=== PATIENT | male | born 1995 | race Caucasian/White ===

== ENCOUNTER 2020-04-29 13:34 | Emergency (ER) | payer OTHER, SELFPAY ==
[2020-04-29] VITALS (30 sets, daily range): BP systolic 118–156; BP diastolic 64–99; PULSE 68–104; RESP 16–17; TEMP 36.9; O2SAT 94–100
--- NOTE | ~2020-04-29 | CT_ITS ---
EXAMINATION: CT brain wo con EXAM DATE: 04/29/2020 15:38 INDICATION: Unable to move jaw since Tuesday, paresis. TECHNIQUE: Spiral CT of the head was performed without contrast. Axial, coronal and sagittal images were reviewed. The dose-length product (DLP) for this examination was 681.00 mGy-cm. The exposure w as tailored according to patient size, and iterative reconstruction (ASIR) was used as additional dos e reduction technique. There is no prior study for comparison. FINDINGS: There is no acute intraparenchymal hemorrhage. No evidence of intraparenchymal brain mass lesion. No evidence of acute infarction. There is no mass effect or midline shift. The ventricles are normal in size. There are no extra-axial collections. There are no acute calvarial fractures. T he orbits are unremarkable. Soft tissue is unremarkable. The visualized sinuses and mastoid air margarita ls are well aerated. IMPRESSION: 1. Unremarkable head CT examination. Reviewed, dictated and finalized at location A. NT SERVICES VICE PRESIDENT
[2020-04-29] MEDS: diphenhydrAMINE HCl INJ 50 MG/ML VIAL 25 MG IV PUSH (14:00)
--- NOTE | 2020-04-29 14:00 | ED.GENADULT ---
HPI - General Adult General Chief complaint: Unspecified <Felix Ott PA-C - Last Filed: 04/29/20 17:28> Stated complaint: allergic rx <Felix Ott PA-C - Last Filed: 04/29/20 17:28> Time Seen by Provider: 04/29/20 13:39 <Felix Ott PA-C - Last Filed: 04/29/20 17:28> Source: patient <Felix Ott PA-C - Last Filed: 04/29/20 17:28> Mode of arrival: ambulatory <Felix Ott PA-C - Last Filed: 04/29/20 17:28> Limitations: no limitations <Felix Ott PA-C - Last Filed: 04/29/20 17:28> History of Present Illness HPI narrative: Patient is a 24-year-old male who presents with involuntary movements of the mouth and face that began Tuesday and have persisted. Patient notes in the last 2 weeks she began Seroquel as a new medication the remainder of his medications he has been on long-term patient on arrival denying any pain does not appear uncomfortable or distressed denies similar occurrence in the past <Felix Ott PA-C - Last Filed: 04/29/20 17:28> Related Data Home medications: Home Medications Medication Instructions Recorded Confirmed clonazepam 04/29/20 04/29/20 divalproex PO 04/29/20 gabapentin 04/29/20 quetiapine 04/29/20 trazodone 04/29/20 <Felix tOt PA-C - Last Filed: 04/29/20 17:28> Allergies/adverse reactions: Allergies Allergy/AdvReac Type Severity Reaction Status Date / Time amoxicillin Allergy Unknown Verified 04/29/20 13:39 <Felix Ott PA-C - Last Filed: 04/29/20 17:28> Review of Systems Review of Systems: All systems reviewed & are unremarkable except as noted in HPI and below <Felix Ott PA-C - Last Filed: 04/29/20 17:28> PMFSH Past Medical History Medical History: Medical History (Updated 04/29/20 @ 17:27 by Felix Ott PA-C) Anxiety Depression <ANNA Munguia Last Filed: 04/29/20 17:28> Social History Social History: Social History (Updated 04/29/20 @ 14:06 by Felix Ott PA-C) Substance use type: marijuana Gender identity (if verbalized by the patient): Male <Felix Ott PA-C - Last Filed: 04/29/20 17:28> Exam Narrative: Exam Narrative: GENERAL: Well-appearing, well-nourished, and in no acute distress. HEAD: Normocephalic, atraumatic. EYES: PERRLA and EOMI. ENT: Nares clear, no rhinorrhea or epistaxis. Mucous membranes moist. Oropharynx without tonsillar hypertrophy exudate or other lesions. NECK: Supple. No adenopathy or masses. CHEST: Clear to auscultation. No respiratory distress. No wheezes rales or rhonchi HEART: Regular rate and rhythm. No murmur heard. EXTREMITIES: Normal range of motion. No edema. SKIN: Warm, dry, no rash. NEURO: No focal deficits. Alert and oriented x3. Cranial nerves II through XII grossly intact. Patient with difficulty with smiling however is able to open the mouth stick his tongue out. Cerebellar intact. Normal speech PSYCH: Normal mood and affect. <Felix Ott PA-C - Last Filed: 04/29/20 17:28> Course Course Emergency Course: Patient evaluated in the emergency department no high risk changes in the blood work or imaging patient is not having normal variant dystonic reaction patient with cranial nerves intact able to follow commands sensory intact. Patient likely having medication reaction which she has quit taking advised to continue to not take the medication and to follow with primary care will given reasons to return <Felix Ott PA-C - Last Filed: 04/29/20 17:28> Vital Signs Vital signs: Vital Signs Temperature 36.9 C 04/29/20 13:40 Pulse Rate 104 H 04/29/20 13:40 Respiratory Rate 17 04/29/20 13:40 Blood Pressure 156/91 H 04/29/20 13:40 Pulse Oximetry 95 04/29/20 13:40 Temperature 36.9 C 04/29/20 13:40 Pulse Rate 72 04/29/20 17:43 Respiratory Rate 16 04/29/20 17:43 Blood Pressure 118/68 04/29/20 17:43 Pulse O
[2020-04-29] MEDS: SODIUM CHLORIDE 0.9% IV 1,000 ML 999 ML IV CONT (14:01)
[2020-04-29] MEDS: FAMOTIDINE 20 MG/2 ML VIAL IV PUSH (14:01)
[2020-04-29 14:51] LABS: Basophils Absolute Auto 0.1 K/mm3 (0.0-0.1); Basophils Percent Auto 0.5 % (0.2-1.2); Eosinophils Absolute Auto 0.4 K/mm3 (0-0.3); Eosinophils Percent Auto 3.8 % (0-4.4); Hematocrit 45.9 % (42.0-52.0); Hemoglobin 15.3 g/dL (14.0-18.0); Immature Granulocyte Absolute 0.03 K/mm3 (0.00-0.031); Immature Granulocyte Percent A 0.3 % (0-0.5); Lymphocytes Absolute Auto 2.82 K/mm3 (0.9-3.2); Lymphocytes Percent Auto 30.3 % (18.3-44.2); Mean Corpuscular HGB Conc 33.3 g/dl (32-36); Mean Corpuscular Hemoglobin 27.5 pg (26-34); Mean Corpuscular Volume 82.6 fl (80-100); Mean Platelet Volume 10.1 fl (7.4-10.4); Monocytes Absolute Auto 0.6 K/mm3 (0.1-0.6); Monocytes Percent Auto 6.9 % (2.6-8.5); Neutrophils Absolute Auto 5.4 K/mm3 (1.3-6.7); Neutrophils Percent Auto 58.2 % (45.5-73.1); Platelet Count Result 362 k/mm3 (150-375); Red Blood Count 5.56 M/mm3 (4.6-6.20); Red Cell Distribution Width 11.7 % (11.5-14.5); White Blood Count 9.3 K/mm3 (4.5-10.0)
[2020-04-29 15:15] LABS: Anion Gap 10 mmol/L (8-16); Blood Urea Nitrogen 14 mg/dL (9-20); Calcium 9.7 mg/dL (8.4-10.2); Carbon Dioxide 27 mmol/L (22-30); Chloride 103 mmol/L (98-107); Estimated CRCL calculation 145 ml/min; Estimated Glomerular Filt Rate > 60; Glucose 96 mg/dL (75-110); Potassium 4.1 mmol/L (3.4-5.0); Sodium 140 mmol/L (137-145)
[2020-04-29 15:43] LABS: Valproic Acid 25.5 ug/mL (50-120)
[2020-04-29 16:04] LABS: Add Urine Microscopic? NO; Appearance Urine Clear (Clear); Bilirubin Urine Negative (Negative); Blood Urine Negative (Negative); Color Urine Yellow (Yellow); Glucose Urine UA Negative (Negative); Ketones Urine Negative (Negative); Leukocyte Esterase Ur Negative LEU/UL (Negative); Nitrate Urine Negative (Negative); Protein Urine Negative (Negative); Urobilinogen Urine Negative mg/dL (<2.0)
[2020-04-29 16:13] LABS: Amphetamine Screen Urine Negative (Negative); Barbiturate Screen Urine Negative (Negative); Benzodiazepines Screen Urine Negative (Negative); Cannabinoid Screen Urine Positive (Negative); Cocaine Screen Urine Negative (Negative); Methadone Screen Urine Negative (Negative); Opiate Screen Urine Negative (Negative); Phencyclidine Screen Urine Negative (Negative)
== END 2020-04-29 17:44 | disposition home or self-care (01) ==
PROVIDERS: Emergency Medicine Emergency Medical Services; Emergency Provider Emergency Medicine; PCP Pediatrics
DX: R29.810 Facial weakness (principal); T43.595A Adverse effect of other antipsychotics and neuroleptics, initial encounter; F41.9 Anxiety disorder, unspecified; F32.9 Major depressive disorder, single episode, unspecified
CPT/HCPCS: 36415; 70450; 80048; 80164; 80307; 81003; 85025; 96361; 96374; 96375; 99284; J1200; J7030